=== PATIENT | male | born 1990 | race Caucasian/White ===

== ENCOUNTER 2019-07-12 13:38 | Emergency (ER) | payer OTHER, MEDICAID, SELFPAY ==
--- NOTE | 2019-07-12 13:41 | DI.RAD.S_ITS ---
PROCEDURE: XR HAND LT MIN 3V INDICATIONS: middle finger injury TECHNIQUE: 3 views of the hand(s) acquired. COMPARISON: None. FINDINGS: Bones: No fractures or dislocations. Carpal bones are normally aligned. No suspicious bony lesions. Soft tissues: No suspicious soft tissue calcifications. IMPRESSION: No trauma found to the osseous structures of the hand. There does appear to be mild soft tissue swelling at the distal phalanx of the third digit. Dictated by: Mathieu Birmingham M.D. on 07/12/2019 at 14:11 Approved by: Mathieu Birmingham M.D. on 07/12/2019 at 14:11
[2019-07-12 14:05] VITALS: BP 128/83; PULSE 59; RESP 16; TEMP 36.2; O2SAT 98; BMI 32.5
--- NOTE | 2019-07-12 15:50 | ED.GENADULT ---
HPI - General Adult General Chief complaint: Extremity Injury, Upper Stated complaint: possible left hand middle finger injury Time Seen by Provider: 07/12/19 13:41 Source: patient Mode of arrival: Ambulatory Limitations: no limitations History of Present Illness HPI narrative: 28-year-old male here for evaluation of left middle finger injury. He is right-hand dominant. He states that he got his middle finger caught between 2 tools. Has pain in the finger. Some swelling. Has not tried anything for symptoms prior to arrival Related Data Allergies Allergy/AdvReac Type Severity Reaction Status Date / Time No Known Drug Allergies Allergy Verified 07/12/19 14:09 Review of Systems Musculoskeletal Musculoskeletal: Denies tingling Comments: Left middle finger pain Integumentary/Breasts Skin/Breast: Denies lesions and Denies rash Neurologic Neurologic: Denies tingling and Denies paresthesias Hematologic/Lymphatic Hematologic/Lymphatic: Denies easy bleeding and Denies easy bruising Patient History Medical History Healthy adult (Acute) Social History Smoking Status: Never smoker Smoking Status: Never smoker Substance Use Type: does not use Exam Initial Vital Signs Initial Vital Signs: Vital Signs Temperature 97.2 F L 07/12/19 14:05 Pulse Rate 59 L 07/12/19 14:05 Respiratory Rate 16 07/12/19 14:05 Blood Pressure 128/83 07/12/19 14:05 Pulse Oximetry 98 07/12/19 14:05 Const General: cooperative, healthy appearing and comfortable Cardio Pulses: radial pulses present on the left Skin Lesions: no lesions Rashes: no rashes Neuro Sensory Exam: no sensory deficits noted Extrem Other: Left wrist unremarkable, left hand unremarkable. Left middle finger MCP joint unremarkable. Tenderness palpation between the MCP and PIP joint. Has tenderness with flexion extension of the PIP joint but is able to do this. Distal to this exam unremarkable Procedures Orthopedic Splinting/Casting Injury #1: Side: left Upper Extremity Injury Location: finger Upper Extremity Immobilizer: aluminum form splint Post splinting neuro exam: intact Post splinting vascular exam: intact Placed by: Nursing Course Orders Ordered: ED Orders 07/12/19 13:41 XR hand LT min 3V Stat Vital Signs Vital signs: Vital Signs - 8 hr 07/12/19 14:05 Temperature 97.2 F L Pulse Rate 59 L Respiratory Rate 16 Blood Pressure 128/83 Pulse Oximetry 98 Medical Decision Making Imaging Data Extremity x-ray #1: Radiologist's Impression: [address] [address] XRay Report Signed Patient: Chandrakant Padilla AMR#: [id number] : 1990Acct:[id number] Age/Sex: 28 / MDate of Service: 07/12/19 Loc: ED Accession Number: [id number] Procedure: XR hand LT min 3V Ordering Provider: Adi Jacob D.O. PROCEDURE: XR HAND LT MIN 3V INDICATIONS: middle finger injury TECHNIQUE: 3 views of the hand(s) acquired. COMPARISON: None. FINDINGS: Bones: No fractures or dislocations. Carpal bones are normally aligned. No suspicious bony lesions. Soft tissues: No suspicious soft tissue calcifications. IMPRESSION: No trauma found to the osseous structures of the hand. There does appear to be mild soft tissue swelling at the distal phalanx of the third digit. Dictated by: Mathieu Birmingham M.D. on 07/12/2019 at 14:11 Approved by: Mathieu Birmingham M.D. on 07/12/2019 at 14:11 [facility] Narrative Medical decision making narrative: Neurovascular intact, no fractures on the x-rays. Suspect soft tissue injury. Was placed in a splint for comfort. He is given return precautions and follow-up instructions. He expressed understanding and agreement plan. Discharge Plan Departure Patient Disposition: Home Clinical Impression: Contusion of left middle finger Qualifiers: Encounter type: initial encounter Damage to nail status: without damage Qualified Code(s): S60.032A - Contusion of left middle finger without damage to nail, initial encounter Discharge Date/Time: 07/12/19 15:56 Instructions: DI for Finger Sprain Activity Restrictions/Additional Instructions: The splint is for your comfort. You can take it off to shower and wash your hands. I also recommend you ice your finger. Return to the emergency department for any new or worsening symptoms
== END 2019-07-12 15:56 | disposition home or self-care (01) ==
PROVIDERS: Emergency Provider Emergency Medicine
DX: S60.032A Contusion of left middle finger without damage to nail, initial encounter (principal); W23.0XXA Caught, crushed, jammed, or pinched between moving objects, initial encounter
CPT/HCPCS: 73130; 99283

== ENCOUNTER 2022-05-14 19:33 | Emergency (ER) | payer OTHER, MEDICAID, SELFPAY ==
[2022-05-14 19:54] VITALS: BP 156/97; PULSE 108; RESP 17; TEMP 35.8; O2SAT 95; BMI 35.9
--- NOTE | 2022-05-14 19:56 | DI.RAD.S_ITS ---
PROCEDURE: XR KNEE LT 3V INDICATIONS: fall onto knee TECHNIQUE: 3 views of the knee were acquired. COMPARISON: None. FINDINGS: Bones: No fractures or dislocations. No suspicious bony lesions. Soft tissues: There is a small joint effusion. No suspicious soft tissue calcifications. IMPRESSION: 1. No fracture or dislocation. Dictated by: Mitchell Antonio M.D. on 05/14/2022 at 21:33 Approved by: Mitchell Antonio M.D. on 05/14/2022 at 21:34
--- NOTE | 2022-05-14 23:53 | ED_ITS ---
HPI - Extremity Injury (Lower) General Chief Complaint: Extremity Injury, Lower Stated Complaint: lt knee injury Time Seen by Provider: 05/14/22 22:54 Source: patient Mode of arrival: Ambulatory History of Present Illness HPI Narrative: 31-year-old gentleman with developmental delay who is able to live independently presents complaining of left knee pain. 3-4 days ago he was playing with a puppy ended up jumping over a fence landing on his left patella with a puppy following up and landing on him. He is able to walk but was complaining of pain today his father looked at the knee and noticed a bit of swelling brings him in for further evaluation. Complains of chronic back pain but otherwise is doing well. No recent fever, cough, chills, vomiting, diarrhea. There were no other injuries associated with the fall in which he landed on his left knee. Related Data Home Medications Medication Instructions Recorded Confirmed No Known Home Medications 05/17/20 05/17/20 Allergies Allergy/AdvReac Type Severity Reaction Status Date / Time No Known Drug Allergies Allergy Verified 05/14/22 19:54 Review of Systems Review of Systems Narrative: Remainder of complete review of systems is otherwise unremarkable except for that included in the HPI. Patient History Medical History Back pain BMI 36.0-36.9,adult Healthy adult Knee pain, right Learning disability Family History Brother Diabetes mellitus Grandfather Diabetes mellitus Grandmother Diabetes mellitus Social History Smoking Status: Never smoker alcohol intake: never substance use type: does not use Smoking Status: Never smoker alcohol intake frequency: holidays/special occasions only Substance Use Type: does not use Exam Initial Vital Signs Initial Vital Signs: Vital Signs Temperature 96.5 F L 05/14/22 19:54 Pulse Rate 108 H 05/14/22 19:54 Respiratory Rate 17 05/14/22 19:54 Blood Pressure 156/97 H 05/14/22 19:54 Pulse Oximetry 95 05/14/22 19:54 Oxygen Delivery Method 05/14/22 19:54 General: Alert appropriate in no acute distress Respiratory: Able to speak in full sentences, no obvious respiratory distress Skin: No obvious rashes, warm and dry Neurologic: Grossly intact no obvious asymmetries or abnormalities Psych: appropriate insight, slightly impulsive, rapid and somewhat tangential speech consistent with his developmental delay Extremity: Left knee with a minor ecchymosis over the patella. Has full range of motion extending, limit did to 100? of flexion secondary to mild effusion. He has medial compartment effusion as well as a prepatellar effusion without erythema or warmth. Knee joint itself is otherwise stable. He is able to walk on it with minimal pain. While explaining the level of pain that he is having he quite literally jumps off the table onto both feet and landing on his knee with no pain behaviors. Course Orders Ordered: ED Orders 05/14/22 19:56 XR knee LT 3V Stat Vital Signs Vital signs: Vital Signs - 8 hr 05/14/22 19:54 Temperature 96.5 F L Pulse Rate 108 H Respiratory Rate 17 Blood Pressure 156/97 H Pulse Oximetry 95 Oxygen Delivery Method Room Air MDM - Extremity Injury (Lower) Imaging Data X-ray left knee: Radiologist's Impression: FINDINGS:? ? Bones:? No fractures or dislocations.? No suspicious bony lesions.? ? Soft tissues:? There is a small joint effusion.? No suspicious soft tissue calcifications.? ? ? IMPRESSION:? ? 1. No fracture or dislocation. ? ? Dictated by: Mitchell Antonio M.D. on 05/14/2022 at 21:33 ? ? [facility] Narrative Medical decision making narrative: 31-year-old young man with a mechanical fall onto the left knee with fusion and mild patellar bruising no acute bony injury and the knee itself is stable. No other associated injuries. Anticipated course of recovery reviewed with patient and his father. Questions are answered they are safe for discharge home Discharge Plan Departure Patient Disposition: Home Clinical Impression: Effusion of knee joint, left Injury of knee, left, superficial Qualifiers: Encounter type: initial encounter Qualified Code(s): S80.912A - Unspecified superficial injury of left knee, initial encounter Instructions: DI for Knee Pain Activity Restrictions/Additional Instructions: Thank you for coming in today There is no bony injury to your knee. You did not break anything. You clearly injured it which is why it is swollen and ?squishy?. This will heal but it is going to need some more time. Using ice can be helpful. Using 400 mg of ibuprofen (2 [id number] pills) and 1 Tylenol every 6 hours can be very helpful in controlling pain. If you find that you are getting worse or have new symptoms please feel free to return to the ER Prescriptions: No Action No Known Home Medications Referrals: Harsha Raphael DO [Primary Care Provider] -
[2022-05-15] MEDS: ACETAMINOPHEN 325 MG TABLET PO (00:12)
[2022-05-15] MEDS: IBUPROFEN 400 MG TABLET PO (00:12)
[2022-05-15 00:16] VITALS: BP 136/75; PULSE 70; RESP 16; O2SAT 99
== END 2022-05-15 00:17 | disposition home or self-care (01) ==
PROVIDERS: Emergency Provider Emergency Medicine; PCP Family Medicine
DX: S80.912A Unspecified superficial injury of left knee, initial encounter (principal); W54.1XXA Struck by dog, initial encounter
CPT/HCPCS: 73562; 99283

== ENCOUNTER → 2024-01-27 14:42 | Outpatient (CLI) | payer OTHER, MEDICAID, SELFPAY ==
--- NOTE | 2024-01-27 14:44 | DI.RAD.S_ITS ---
PROCEDURE: XR KNEE RT 3V INDICATIONS: pain TECHNIQUE: 3 views of the knee were acquired. COMPARISON: [facility], CR, XR KNEE LT 3V, 05/14/2022, 20:13. FINDINGS: Bones: No fractures or dislocations. No suspicious bony lesions. Soft tissues: No joint effusion. No suspicious soft tissue calcifications. IMPRESSION: No visualized acute fracture or dislocation. However, if clinical concern and/or pain persist, short interval imaging followup in 7-10 days is recommended, as occult injury cannot be definitively excluded. Dictated by: Zully Iniguez M.D. on 01/28/2024 at 14:53 Approved by: Zully Iniguez M.D. on 01/28/2024 at 15:03
== END ==
PROVIDERS: PCP Family Medicine; Referring Provider Family Medicine; Visit Provider Family Medicine
DX: M25.561 Pain in right knee (principal); M25.562 Pain in left knee
CPT/HCPCS: 73562

== ENCOUNTER → 2024-02-01 07:30 | Outpatient (CLI) | payer OTHER, MEDICAID, SELFPAY ==
[2024-02-01 08:10] LABS: Add Manual Diff / Slide Review NO; Basophils Absolute Auto 100 /uL (0-100); Basophils Percent Auto 0.8 % (0-2); Eosinophils Absolute Auto 200 /uL (0-450); Eosinophils Percent Auto 3.2 % (2-4); Hematocrit 42.9 % (41-53); Hemoglobin 15.1 g/dL (13.5-17.5); Lymphocytes Absolute Auto 2100 /uL (1100-4500); Lymphocytes Percent Auto 28.5 % (25-40); Mean Corpuscular HGB Conc 35.3 % (30-36); Mean Corpuscular Hemoglobin 30.8 PG (26-34); Mean Corpuscular Volume 87.1 fL (80-100); Monocytes Absolute Auto 500 /uL (0-900); Monocytes Percent Auto 7.1 % (3-14); Neutrophils Absolute Auto 4500 /uL (1500-7000); Neutrophils Percent Auto 60.4 % (50-75); Platelet Count 246 X10^3/uL (150-400); Red Blood Cell Count 4.92 X10^6/uL (4.5-5.9); Red Cell Distribution Width 13.5 % (11.6-14.8); White Blood Cell Count 7.4 X10^3/uL (4.5-11.0)
[2024-02-01 08:30] LABS: Alanine Aminotransferase 109 IU/L (<50); Albumin 4.6 g/dL (3.5-5.0); Albumin Globulin Ratio 1.8 (1.0-2.8); Alkaline Phosphatase 73 U/L (38-126); Aspartate Aminotransferase 55 IU/L (17-59); Bilirubin Total 0.9 mg/dL (0.2-1.3); Blood Urea Nitrogen 17 mg/dL (9-20); Calcium 9.6 mg/dL (8.4-10.2); Carbon Dioxide 23 mmol/L (22-32); Chloride 107 mmol/L (98-107); Cholesterol 171 mg/dL (140-199); Estimated Glomerular Filt Rate > 60 mL/min (>60); Globulin 2.6 g/dL (1.7-4.1); Glucose 99 mg/dL (70-100); HDL Cholesterol 40 mg/dL (40-60); HEMOLYSIS < 15 (0-50); LDL Cholesterol Calculated 106 mg/dL (<100); Potassium 3.9 mmol/L (3.4-5.1); Sodium 140 mmol/L (137-145); Total Protein 7.2 g/dL (6.3-8.2); Triglycerides 126 mg/dL (35-150)
[2024-02-01 10:00] LABS: Hemoglobin A1C% w Est Avg Glu 4.7 % (4.0-6.0)
== END ==
PROVIDERS: PCP Family Medicine; Referring Provider Family Medicine; Visit Provider Family Medicine
DX: E66.01 Morbid (severe) obesity due to excess calories (principal); Z68.41 Body mass index [BMI] 40.0-44.9, adult
CPT/HCPCS: 36415; 80053; 80061; 83036; 85025

== ENCOUNTER 2024-06-01 13:37 | Emergency (ER) | payer OTHER, SELFPAY ==
[2024-06-01] VITALS (7 sets, daily range): BP systolic 121–162; BP diastolic 66–86; PULSE 80–100; RESP 16–24; TEMP 36.9; O2SAT 92–100; BMI 39.7
--- NOTE | 2024-06-01 13:39 | DI.RAD.S_ITS ---
PROCEDURE: XR CHEST 1V INDICATIONS: chest pain TECHNIQUE: One view of the chest was acquired. COMPARISON: None. FINDINGS: Surgical changes and devices: None. Lungs and pleura: Lungs are clear. No pleural effusions or pneumothorax. Mediastinum: Mediastinal contours appear normal. Heart size is normal. Bones and chest wall: No suspicious bony lesions. Overlying soft tissues appear unremarkable. IMPRESSION: No acute cardiopulmonary pathology. Dictated by: Rahul Valero M.D. on 06/01/2024 at 14:02 Approved by: Rahul Valero M.D. on 06/01/2024 at 14:02
--- NOTE | 2024-06-01 13:43 | EKG_ITS ---
[address] [address] Test Date: 2024-06-01 Pat Name: Chandrakant Padilla Department: Room: Gender: Male Porcelain Waxer: DIO : 1990 Requested By: Order Number: [id number] Reading MD: Malcahi Cheek Measurements Intervals [place] Rate: 95 P: 59 CT: 138 QRS: 84 QRSD: 90 T: 55 QT: 344 QTc: 432 Interpretive Statements Normal sinus rhythm Electronically Signed On 06-02-2024 8:20:21 PST by Malachi Cheek
--- NOTE | 2024-06-01 13:57 | ED_ITS ---
HPI - Chest Pain <Erika Garcia PA-C - Last Filed: 06/01/24 15:49> General Chief Complaint: Chest Pain Stated Complaint: chest px Time Seen by Provider: 06/01/24 13:56 History of Present Illness HPI narrative: 33-year-old male with developmental delay but independently living presents with sudden onset of left chest wall pain that occurred 2 hours ago while he was at his sister's. He is here with his father who is also helping fill in the history of present illness. He reports no recent illness, he is denying any fall, he is denying any nausea, vomiting, cough, fever, rash, swelling. His history is significant for GERD but he states it is well controlled with omeprazole 20 mg at bedtime. His father states that they did lift a large smoker as well as he carried a large box to the truck but did not feel any pain at that time. His last meal was around 10:00 a.m. which consisted of Ukrainian toast, hot chocolate apple cider. He has also been chewing candy throughout the day. He states the pain feels sharp it comes and goes if he touches the area it does hurt he states this is never happened to him before, it does not radiate to the back, he is denying any flank pain, no issues with urination, last bowel movement was yesterday and was normal. He has no history of any airspace disease, records reviewed reveal fatty liver, obesity, chronic back pain, knee pain, family history of diabetes. He has never smoked. All other systems are reviewed and are negative. Related Data Previous Rx's Medication Instructions Recorded omeprazole 20 mg capsule,delayed 20 mg PO DAILY #90 caps 02/12/24 release Allergies Allergy/AdvReac Type Severity Reaction Status Date / Time No Known Drug Allergies Allergy Verified 02/12/24 14:32 Review of Systems <Erika Garcia PA-C - Last Filed: 06/01/24 15:49> Review of Systems Narrative: All other systems reviewed and are negative. Patient History <Erika Garcia PA-C - Last Filed: 06/01/24 15:49> Medical History (Updated 06/01/24 @ 15:01 by Erika Garcia PA-C) Fatty liver disease, nonalcoholic Chronic GERD Acquired skin tag Bilateral knee pain Morbid obesity with BMI of 40.0-44.9, adult Left knee pain Learning disability Knee pain, right Back pain Healthy adult Family History Brother Diabetes mellitus Grandfather Diabetes mellitus Grandmother Diabetes mellitus Social History Smoking Status: Never smoker alcohol intake: never substance use type: does not use Smoking Status: Never smoker alcohol intake frequency: holidays/special occasions only Exam <Erika Garcia PA-C - Last Filed: 06/01/24 15:49> Initial Vital Signs Initial Vital Signs: Vital Signs Pulse Oximetry 100 06/01/24 13:39 Const General: cooperative, healthy appearing, comfortable, well developed and well groomed HENAL Head: normal to inspection, normocephalic and atraumatic Nose: external nose normal Mouth: oral mucosae normal, lip normal, tongue normal and oropharynx normal Eyes General: Yes appearance normal, both eyes and all related structures Neck Neck: normal visual inspection, full ROM, no meningeal signs, trachea midline and supple Carotids: normal carotid upstroke Lymphatic: No lymphadenopathy Chest Chest: normal inspection of the chest, No crepitus, localized rib tenderness with anteroposterior compression, No mass and tenderness (Intercostal spaces involving the 4th 5th and 6th left chest wall tenderness) Other: Tenderness describe travels along and stops at the mid axillary line, no posterior discomfort. Barrel hoop test is negative. Resp Effort & Inspection: normal respiratory effort and able to speak in complete sentences Auscultation: clear to auscultation bilaterally, no crackles, no rales, no rhonchi and no wheezes Cardio Rate: regular rate Rhythm: regular rhythm GI Inspection: normal to inspection, no abdominal wall ecchymosis, no edema, non- distended and obesity Palpation: soft, no hepatosplenomegaly and No guarding Percussion: normal to percussion Auscultation: normal bowel sounds Other: Negative epigastric point tenderness, negative Mera's. Back/Spine/Pelvis Back: normal to inspection and back tenderness (No guarding) Thoracic/Lumbar Spine: thoracic and lumbar spine normal to inspection Other: No focal bony midline tenderness mild tenderness in the paraspinous tissues he states this his his baseline. Skin General: no rashes or lesions noted, elasticity normal and turgor normal <Kim Stevens MD - Last Filed: 06/01/24 15:57> Initial Vital Signs Initial Vital Signs: Vital Signs Pulse Oximetry 100 06/01/24 13:39 Course <Erika Garcia PA-C - Last Filed: 06/01/24 15:49> Orders Ordered: ED Orders 06/01/24 13:39 XR chest 1V Stat EKG-12 Lead Stat 06/01/24 13:42 Complete Blood Count AUTO DIFF Stat Comprehensive Metabolic Panel Stat Lipase Stat Magnesium Stat NT-proBNP (BNP-Adult 18+) Stat PTT Partial Thromboplastin Pierre Stat Prothrombin Time INR Stat Troponin & CK Cardiac Panel Stat Discontinued Medications Aspirin (Aspirin 81 Mg Chew Tab) 324 mg PO NOW ONE Stop: 06/01/24 13:40 Last Admin: 06/01/24 14:00 Dose: 324 mg Documented By: Ketorolac Tromethamine (Ketorolac 30 Mg/Ml Vial) 30 mg IV NOW ONE Stop: 06/01/24 14:57 Last Admin: 06/01/24 15:04 Dose: 30 mg Documented By: Reevaluation(s) Reevaluation #1: Re-evaluated at the bedside with his father present. He has had no recurrence of the acute pain that he had, he is given water with ice, he is treated with Toradol 30 mg intravenously. Reviewed all of his test results which are normal along with a chest x-ray and EKG with both he and his father. Vital Signs Vital signs: Vital Signs - 8 hr 06/01/24 13:39 06/01/24 13:40 06/01/24 13:40 Temperature Pulse Rate 100 H Respiratory Rate Blood Pressure 162/86 H Pulse Oximetry 100 96 Oxygen Delivery Method Room Air 06/01/24 13:42 06/01/24 14:00 06/01/24 14:01 Temperature 98.5 F Pulse Rate 96 H 90 91 H Respiratory Rate 16 24 24 Blood Pressure 162/86 H Pulse Oximetry 96 94 94 Oxygen Delivery Method Room Air 06/01/24 14:01 06/01/24 14:30 06/01/24 14:30 Temperature Pulse Rate 85 Respiratory Rate 20 Blood Pressure 123/68 121/66 Pulse Oximetry 92 Oxygen Delivery Method 06/01/24 15:33 06/01/24 15:33 Temperature Pulse Rate 80 Respiratory Rate Blood Pressure 130/75 Pulse Oximetry 97 Oxygen Delivery Method Vital signs reviewed and are normal except for elevated systolic. <Kim Stevens MD - Last Filed: 06/01/24 15:57> Orders Ordered: ED Orders 06/01/24 13:39 XR chest 1V Stat EKG-12 Lead Stat 06/01/24 13:42 Complete Blood Count AUTO DIFF Stat Comprehensive Metabolic Panel Stat Lipase Stat Magnesium Stat NT-proBNP (BNP-Adult 18+) Stat PTT Partial Thromboplastin Pierre Stat Prothrombin Time INR Stat Troponin & CK Cardiac Panel Stat Discontinued Medications Aspirin (Aspirin 81 Mg Chew Tab) 324 mg PO NOW ONE Stop: 06/01/24 13:40 Last Admin: 06/01/24 14:00 Dose: 324 mg Documented By: AB Ketorolac Tromethamine (Ketorolac 30 Mg/Ml Vial) 30 mg IV NOW ONE Stop: 06/01/24 14:57 Last Admin: 06/01/24 15:04 Dose: 30 mg Documented By: AB Vital Signs Vital signs: Vital Signs - 8 hr 06/01/24 13:39 06/01/24 13:40 06/01/24 13:40 Temperature Pulse Rate 100 H Respiratory Rate Blood Pressure 162/86 H Pulse Oximetry 100 96 Oxygen Delivery Method Room Air 06/01/24 13:42 06/01/24 14:00 06/01/24 14:01 Temperature 98.5 F Pulse Rate 96 H 90 91 H Respiratory Rate 16 24 24 Blood Pressure 162/86 H Pulse Oximetry 96 94 94 Oxygen Delivery Method Room Air 06/01/24 14:01 06/01/24 14:30 06/01/24 14:30 Temperature Pulse Rate 85 Respiratory Rate 20 Blood Pressure 123/68 121/66 Pulse Oximetry 92 Oxygen Delivery Method 06/01/24 15:33 06/01/24 15:33 Temperature Pulse Rate 80 Respiratory Rate Blood Pressure 130/75 Pulse Oximetry 97 Oxygen Delivery Method MDM - Chest Pain <Erika Garcia PA-C - Last Filed: 06/01/24 15:49> Lab Data 06/01/24 13:42 06/01/24 13:42 Labs: Lab Results 06/01/24 Range/Units 13:42 WBC 9.0 (4.5-11.0) X10^3/uL RBC 5.47 (4.5-5.9) X10^6/uL Hgb 16.3 (13.5-17.5) g/dL Hct 47.1 (41-53) % MCV 86.2 (80-100) fL MCH 29.9 (26-34) PG MCHC 34.6 (30-36) % RDW 13.5 (11.6-14.8) % Plt Count 266 (150-400) X10^3/uL Neut % (Auto) 71.6 (50-75) % Lymph % (Auto) 20.4 L (25-40) % [place] % (Auto) 5.4 (3-14) % Eos % (Auto) 1.9 L (2-4) % Baso % (Auto) 0.7 (0-2) % Neut # (Auto) 6500 (2833-4650) /uL Lymph # (Auto) 1800 (6107-6156) /uL [place] # (Auto) 500 (0-900) /uL Eos # (Auto) 200 (0-450) /uL Baso # (Auto) 100 (0-100) /uL PT 13.2 H (9.4-12.5) SECONDS INR 1.2 (0.9-1.3) APTT 39 H (25.1-36.5) SECONDS Sodium 141 (137-145) mmol/L Potassium 4.0 (3.4-5.1) mmol/L Chloride 106 (98-107) mmol/L Carbon Dioxide 24 (22-32) mmol/L BUN 19 (9-20) mg/dL Creatinine 0.89 (0.66-1.25) mg/dL Estimated GFR > 60 (>60) mL/min BUN/Creatinine Ratio 21.3 (6-22) Glucose 119 H (70-100) mg/dL Calcium 9.9 (8.4-10.2) mg/dL Magnesium 2.2 (1.6-2.3) mg/dL Total Bilirubin 0.8 (0.2-1.3) mg/dL AST 46 (17-59) IU/L ALT 66 H (<50) IU/L Alkaline Phosphatase 71 (38-126) U/L Total Creatine Kinase 102 (55-170) U/L Troponin I < 0.012 (0.01-0.034) ng/mL NT-Pro-B Natriuret Pep 50 (<125) pg/mL Total Protein 8.0 (6.3-8.2) g/dL Albumin 5.0 (3.5-5.0) g/dL Globulin 3.0 (1.7-4.1) g/dL Albumin/Globulin Ratio 1.7 (1.0-2.8) Lipase 73 (23-300) U/L CBC is normal, chemistry panel is also normal with ALT of 66 which is actually down from 109 history of fatty liver. Glucose 119, lipase is normal at 73, troponin is negative <0.012, BNP is normal, CK normal Imaging Data Chest x-ray: My Impression: Deferred to radiologist's interpretation below. Radiologist's Impression: PROCEDURE: XR CHEST 1V INDICATIONS: chest pain TECHNIQUE: One view of the chest was acquired. COMPARISON: None. FINDINGS: Surgical changes and devices: None. Lungs and pleura: Lungs are clear. No pleural effusions or pneumothorax. Mediastinum: Mediastinal contours appear normal. Heart size is normal. Bones and chest wall: No suspicious bony lesions. Overlying soft tissues appear unremarkable. IMPRESSION: No acute cardiopulmonary pathology. Dictated by: Rahul Valero M.D. on 06/01/2024 at 14:02 Approved by: Rahul Valero M.D. on 06/01/2024 at 14:02 ECG Data Interpretation: Twelve lead ECG shows a normal sinus rhythm with a ventricular rate of 95 beats per minute, no P or T-wave abnormalities, no ectopy, normal MT interval. Normal axis. [facility] Narrative Medical decision making narrative: Pain is reproducible with palpation, there is no signs of any rash, no swelling, no mass, his lab work is completely normal including CBC, CMP, lipase, troponin, BNP, CK. Chest x-ray is also normal. ECG normal sinus rhythm. He has no symptoms to suggest an abdominal process, low index of suspicion for any cardiopulmonary process, most likely musculoskeletal as again it is reproducible. He has some focal tenderness between the 4th 5th and 6th intercostal spaces on the left side leading up to the mid axillary line only. No findings on the back. <Kim Stevens MD - Last Filed: 06/01/24 15:57> Lab Data Labs: Lab Results 06/01/24 Range/Units 13:42 WBC 9.0 (4.5-11.0) X10^3/uL RBC 5.47 (4.5-5.9) X10^6/uL Hgb 16.3 (13.5-17.5) g/dL Hct 47.1 (41-53) % MCV 86.2 (80-100) fL MCH 29.9 (26-34) PG MCHC 34.6 (30-36) % RDW 13.5 (11.6-14.8) % Plt Count 266 (150-400) X10^3/uL Neut % (Auto) 71.6 (50-75) % Lymph % (Auto) 20.4 L (25-40) % [place] % (Auto) 5.4 (3-14) % Eos % (Auto) 1.9 L (2-4) % Baso % (Auto) 0.7 (0-2) % Neut # (Auto) 6500 (0480-6079) /uL Lymph # (Auto) 1800 (1493-3594) /uL [place] # (Auto) 500 (0-900) /uL Eos # (Auto) 200 (0-450) /uL Baso # (Auto) 100 (0-100) /uL PT 13.2 H (9.4-12.5) SECONDS INR 1.2 (0.9-1.3) APTT 39 H (25.1-36.5) SECONDS Sodium 141 (137-145) mmol/L Potassium 4.0 (3.4-5.1) mmol/L Chloride 106 (98-107) mmol/L Carbon Dioxide 24 (22-32) mmol/L BUN 19 (9-20) mg/dL Creatinine 0.89 (0.66-1.25) mg/dL Estimated GFR > 60 (>60) mL/min BUN/Creatinine Ratio 21.3 (6-22) Glucose 119 H (70-100) mg/dL Calcium 9.9 (8.4-10.2) mg/dL Magnesium 2.2 (1.6-2.3) mg/dL Total Bilirubin 0.8 (0.2-1.3) mg/dL AST 46 (17-59) IU/L ALT 66 H (<50) IU/L Alkaline Phosphatase 71 (38-126) U/L Total Creatine Kinase 102 (55-170) U/L Troponin I < 0.012 (0.01-0.034) ng/mL NT-Pro-B Natriuret Pep 50 (<125) pg/mL Total Protein 8.0 (6.3-8.2) g/dL Albumin 5.0 (3.5-5.0) g/dL Globulin 3.0 (1.7-4.1) g/dL Albumin/Globulin Ratio 1.7 (1.0-2.8) Lipase 73 (23-300) U/L Discharge Plan Departure Patient Disposition: Home Clinical Impression: Muscle strain of anterior chest wall, Costochondritis, acute, Learning disability Instructions: DI for Costochondritis, DI for Muscle Strain Activity Restrictions/Additional Instructions: Your lab work and tests today were normal including chest x-ray and EKG. I believe your pain is musculoskeletal as we are able to reproduce it and it hurts when we touch it or if you move a certain way. You were given a strong anti- inflammatory through the vein so do not take any additional ibuprofen but you may take Tylenol if needed at home. I would like you to try an ice pack 10-15 minutes at a time over a T-shirt applied to your pain, you may also alternate heat this includes a hot shower or a heating pad. Use caution as you can burn herself. Please do follow up with your primary care provider if symptoms persist, if you have any worsening pain or any new worrisome symptoms do not hesitate to return to the emergency department. Prescriptions: No Action omeprazole 20 mg capsule,delayed release(DR/EC) 20 mg PO DAILY Qty: 90 3RF Referrals: Harsha Raphael DO [Primary Care Provider] - Stand Alone Forms: Patient Portal/API/Survey ED Sign-out <Kim Stevens MD - Last Filed: 06/01/24 15:57> Cosign ED Attending Coskarunaature Attestation: I was immediately available in the department for consultation throughout this patient's visit. Kim Stevens MD
[2024-06-01] MEDS: ASPIRIN 81 MG CHEW TAB 324 MG PO (14:00)
[2024-06-01 14:01] LABS: INR 1.2 (0.9-1.3); Prothrombin Time 13.2 SECONDS (9.4-12.5)
[2024-06-01 14:04] LABS: PTT Partial Thromboplastin Tim 39 SECONDS (25.1-36.5)
[2024-06-01 14:06] LABS: Add Manual Diff / Slide Review NO; Basophils Absolute Auto 100 /uL (0-100); Basophils Percent Auto 0.7 % (0-2); Eosinophils Absolute Auto 200 /uL (0-450); Eosinophils Percent Auto 1.9 % (2-4); Hematocrit 47.1 % (41-53); Hemoglobin 16.3 g/dL (13.5-17.5); Lymphocytes Absolute Auto 1800 /uL (1100-4500); Lymphocytes Percent Auto 20.4 % (25-40); Mean Corpuscular HGB Conc 34.6 % (30-36); Mean Corpuscular Hemoglobin 29.9 PG (26-34); Mean Corpuscular Volume 86.2 fL (80-100); Monocytes Absolute Auto 500 /uL (0-900); Monocytes Percent Auto 5.4 % (3-14); Neutrophils Absolute Auto 6500 /uL (1500-7000); Neutrophils Percent Auto 71.6 % (50-75); Platelet Count 266 X10^3/uL (150-400); Red Blood Cell Count 5.47 X10^6/uL (4.5-5.9); Red Cell Distribution Width 13.5 % (11.6-14.8)
[2024-06-01 14:07] LABS: Alanine Aminotransferase 66 IU/L (<50); Albumin Globulin Ratio 1.7 (1.0-2.8); Alkaline Phosphatase 71 U/L (38-126); Aspartate Aminotransferase 46 IU/L (17-59); BUN Creatinine Ratio 21.3 (6-22); Bilirubin Total 0.8 mg/dL (0.2-1.3); Blood Urea Nitrogen 19 mg/dL (9-20); Calcium 9.9 mg/dL (8.4-10.2); Carbon Dioxide 24 mmol/L (22-32); Chloride 106 mmol/L (98-107); Creatine Kinase 102 U/L (55-170); Estimated Glomerular Filt Rate > 60 mL/min (>60); Glucose 119 mg/dL (70-100); HEMOLYSIS 16 (0-50); Lipase 73 U/L (23-300); Magnesium 2.2 mg/dL (1.6-2.3); Sodium 141 mmol/L (137-145)
[2024-06-01 14:19] LABS: NT-proBNP (BNP-Adult 18+) 50 pg/mL (<125); Troponin I < 0.012 ng/mL (0.01-0.034)
[2024-06-01] MEDS: KETOROLAC 30 MG/ML VIAL IV (15:04)
== END 2024-06-01 15:41 | disposition home or self-care (01) ==
PROVIDERS: Emergency Medicine; Emergency Provider Physician Assistant Medical; PCP Family Medicine
DX: S29.011A Strain of muscle and tendon of front wall of thorax, initial encounter (principal); M94.0 Chondrocostal junction syndrome [Tietze]; F81.9 Developmental disorder of scholastic skills, unspecified; X58.XXXA Exposure to other specified factors, initial encounter
CPT/HCPCS: 36415; 71045; 80053; 82550; 83690; 83735; 83880; 84484; 85025; 85610; 85730; 93005; 96374; 99284; J1885

== ENCOUNTER → 2025-02-07 14:44 | Outpatient (CLI) | payer OTHER, SELFPAY ==
--- NOTE | 2025-02-07 14:46 | DI.RAD.S_ITS ---
PROCEDURE: XR ANKLE RT MIN 3V INDICATIONS: pain of heel TECHNIQUE: 3 views of the ankle were acquired. COMPARISON: None. FINDINGS: Bones: No fractures or dislocations. Ankle mortise is normally aligned. No suspicious bony lesions. Prominent retro calcaneal enthesophyte. Soft tissues: No tibiotalar joint effusion. Achilles tendon appears normal. IMPRESSION: Calcaneal enthesopathy. Dictated by: [place] [facility] Interpreted: Esteban Arias MD on 02/07/2025 at 15:24 Transcribed by: CAROLANN on 02/07/2025 at 15:26 Approved by: Esteban Arias M.D. on 02/16/2025 at 7:57
== END ==
PROVIDERS: PCP Family Medicine; Referring Provider Family Medicine; Visit Provider Family Medicine
DX: M77.31 Calcaneal spur, right foot (principal); M79.671 Pain in right foot; G89.29 Other chronic pain
CPT/HCPCS: 73610